=== PATIENT | male | born 2000 | race Caucasian/White ===

== ENCOUNTER 2021-12-01 12:13 | Inpatient (IN) | payer OTHER ==
[~2021-12-01] VITALS: Ht 175.3 cm; Wt 106.3 kg
[2021-12-01 13:51] LABS: HEMOGLOBIN 15.6 g/dl (13.5-17.5); MEAN CORPUSCULAR HGB CONC 34.7 g/dl (32.0-36.5); MEAN CORPUSCULAR VOLUME 86.5 fl (80.0-96.0); PLATELET COUNT, AUTOMATED 222 10^3/uL (150-450); WHITE BLOOD COUNT 5.1 10^3/uL (4.0-10.0)
[2021-12-01 14:03] LABS: AMPHETAMINES LEVEL URINE NEGATIVE (NEGATIVE); BARBITURATES URINE NEGATIVE (NEGATIVE); BENZODIAZEPINES URINE NEGATIVE (NEGATIVE); CANNABINOIDS URINE NEGATIVE (NEGATIVE); COCAINE METABOLITE URINE NEGATIVE (NEGATIVE); METHADONE URINE NEGATIVE (NEGATIVE); OPIATES URINE NEGATIVE (NEGATIVE); PHENCYCLIDINE URINE NEGATIVE (NEGATIVE)
[2021-12-01 14:27] LABS: ACETAMINOPHEN LEVEL < 2.0 UG/ML (10.0-30.0); ALBUMIN 4.3 GM/DL (3.2-5.2); ALT/SGPT 21 U/L (12-78); BILIRUBIN,DIRECT 0.2 MG/DL (0.0-0.2); BILIRUBIN,TOTAL 0.5 MG/DL (0.2-1.0); BLOOD UREA NITROGEN 17 MG/DL (7-18); CALCIUM LEVEL 9.3 MG/DL (8.5-10.1); CARBON DIOXIDE LEVEL 27 MEQ/L (21-32); CHLORIDE LEVEL 105 MEQ/L (98-107); ETHYL ALCOHOL (ETHANOL) < 0.003 % (0.000-0.010); GLOMERULAR FILTRATION RATE > 60.0 (>60); GLUCOSE, FASTING 90 MG/DL (70-100); POTASSIUM SERUM 4.1 MEQ/L (3.5-5.1); SALICYLATE LEVEL < 1.7 MG/DL (5.0-30.0); SODIUM LEVEL 139 MEQ/L (136-145); TOTAL PROTEIN 7.2 GM/DL (6.4-8.2)
[2021-12-01 15:21] LABS: RSV AMPLIFICATION NEGATIVE (NEGATIVE)
[2021-12-01] MEDS ORDERED: MOM 30ML SUSPENSION UDC PO PRN (22:25)
[2021-12-01] MEDS ORDERED: ACETAMINOPHEN TAB 650MG DOSE (2X325MG) PO PRN (22:25)
[2021-12-01] MEDS ORDERED: MAALOX 30 ML SUSP *UDC PO PRN (22:25)
[2021-12-01 23:30] VITALS: BP 147/102
[2021-12-02] MEDS: traZODone 50 MG TAB PO PRN ×2 (00:41→22:06)
[2021-12-02 06:51] VITALS: BP 145/90
[2021-12-02] MEDS ORDERED: hydrOXYzine 50 MG TAB PO PRN (15:25)
[2021-12-02] MEDS ORDERED: SERTRALINE HCL 25 MG TABLET PO ONE (15:25)
[2021-12-02 17:52] VITALS: BP 148/82
[2021-12-03 06:52] VITALS: BP 145/85
[2021-12-03] MEDS: SERTRALINE HCL 50 MG TAB PO SCH (09:46)
[2021-12-03 16:09] VITALS: BP 148/74
[2021-12-04 06:28] VITALS: BP 142/88
[2021-12-04] MEDS: SERTRALINE HCL 50 MG TAB PO SCH (08:20)
[2021-12-04 16:22] VITALS: BP 147/89
[2021-12-04] MEDS: traZODone 50 MG TAB PO PRN (21:42)
[2021-12-05 06:39] VITALS: BP 151/77
[2021-12-05] MEDS: SERTRALINE HCL 50 MG TAB PO SCH (08:59)
[2021-12-05 16:20] VITALS: BP 138/72
[2021-12-05] MEDS: traZODone 50 MG TAB PO PRN (23:38)
[2021-12-06 06:32] VITALS: BP 155/72
[2021-12-06] MEDS ORDERED: SERT50TA29 PO (09:45)
[2021-12-06] MEDS ORDERED: HYDR50TA70 PO (09:45)
[2021-12-06] MEDS ORDERED: TRAZ-252 PO (09:45)
[2021-12-06] MEDS: SERTRALINE HCL 50 MG TAB PO SCH (09:51)
[2021-12-06 18:33] VITALS: BP 141/79
[2021-12-06] MEDS: traZODone 50 MG TAB PO PRN (23:03)
[2021-12-07 06:50] VITALS: BP 156/75
[2021-12-07] MEDS: SERTRALINE HCL 50 MG TAB PO SCH (08:46)
== END 2021-12-07 11:41 | disposition home or self-care (01) | DRG 885 ==
LOC: M ED 12:13 → M ED INP 12:14 → M PSY 23:25
PROVIDERS: ADMIT Psychiatry & Neurology Psychiatry; ATTEND Psychiatry & Neurology Psychiatry
DX: F32.1 Major depressive disorder, single episode, moderate (principal); R45.851 Suicidal ideations; Z62.810 Personal history of physical and sexual abuse in childhood